=== PATIENT | female | born 1940 | race Asian ===

== ENCOUNTER 2021-01-21 20:15 | Emergency (ER) | payer MEDICARE, OTHER ==
[~2021-01-21] VITALS: Ht 167.6 cm; Wt 68.0 kg
--- NOTE | 2021-01-21 20:23 | NUR ---
Patient BIB [facility] [address], per EMS she was walking down the street and presumed lost. [employer] was on scene and report was completed. Patient brought into the ER for "safekeeping" per EMS
--- NOTE | 2021-01-21 20:26 | NUR ---
master control supervisor Ariana requested for sitter as this patient is a high elopement risk. Per casework supervisor, no sitter available
--- NOTE | 2021-01-21 20:33 | NUR ---
Patients family member, candace is coming to pick her up.
--- NOTE | 2021-01-21 20:38 | NUR ---
DARRIAN Borden at bedside for information obtaning.
--- NOTE | 2021-01-21 20:41 | NUR ---
Patient discharged to home in stable condition. Written and verbal after care instructions given. Patient verbalizes understanding of instructions. Stressed follow up or return to ER for worsening s/s. Driven home by family
--- NOTE | 2021-01-21 20:41 | NUR ---
Patient picked up by Alissa Roe Adolfo, daughter. [phone]
[2021-01-21 20:42] VITALS: BP 134/87
== END 2021-01-21 20:45 | disposition home or self-care (01) ==
LOC: ER 20:15 → EDBD 20:15 → ER 20:45
DX: Z03.89 Encounter for observation for other suspected diseases and conditions ruled out (principal)
CPT/HCPCS: A4663